=== PATIENT | female | born 1985 | race Caucasian/White ===

== ENCOUNTER 2023-08-23 20:20 | Emergency (ER) | payer OTHER ==
[~2023-08-23] VITALS: Ht 149.9 cm; Wt 40.8 kg
[2023-08-23 20:25] VITALS: BP 170/93; PULSE 112; RESP 16; TEMP 97.6; O2SAT 100
[2023-08-23] MEDS ORDERED: ONDANSETRON 4 MG/2 ML VIAL IVP ONE (20:50)
[2023-08-23] MEDS ORDERED: NACL 0.9% 1,000 ML IV ONE (20:50)
[2023-08-23 21:04] LABS: BASOPHILS % (AUTO) 0.3 % (0.0-2.0); HEMATOCRIT 44.3 % (36-48); LYMPHOCYTES # (AUTO) 0.6 K/uL (2.5-16.5); LYMPHOCYTES % (AUTO) 8.8 % (20.5-51.1); MEAN CORPUSCULAR HEMOGLOBIN 28 pg (27-31); MEAN CORPUSCULAR HGB CONC 34 g/dL (33-37); MEAN CORPUSCULAR VOLUME 82.8 fL (80-94); MONOCYTES # (AUTO) 0.1 K/uL (0.8-1.0); MONOCYTES % (AUTO) 1.9 % (1.7-9.3); NEUTROPHILS # (AUTO) 5.7 K/uL (1.8-7.7); PLATELET COUNT (AUTO) 256 K/uL (140-450); RED BLOOD CELL COUNT(AUTO) 5.36 MIL/uL (4.20-5.40); RED CELL DISTRIBUTION WIDTH 13.2 % (11.6-13.7); WHITE BLOOD COUNT (AUTO) 6.4 K/uL (4.8-10.8)
[2023-08-23 21:27] LABS: ALANINE AMINOTRANSFERASE 28 U/L (12-78); ALBUMIN 4.2 g/dL (3.4-5.0); ALKALINE PHOSPHATASE 92 U/L (50-136); ANION GAP 17.5 (8-16); ASPARTATE AMINOTRANSFERASE 20 U/L (15-37); CALCIUM 9.7 mg/dL (8.5-10.1); CARBON DIOXIDE 23.1 mmol/L (21-32); CHLORIDE 103 mmol/L (98-107); CREATININE 0.6 mg/dL (0.6-1.3); GFR ARICAN-AMERICAN 143 mL/min (>90); GFR NON ARICAN-AMERICAN 118 mL/min (>90); GLUCOSE 154 mg/dL (74-106); LIPASE 21 U/L (16-77); POTASSIUM 3.6 mmol/L (3.5-5.1); SODIUM SERUM 140 mmol/L (136-145); THYROID STIMULATING HORMONE < 0.01 uIU/mL (0.34-3.74); TOTAL PROTEIN, SERUM 7.7 g/dL (6.4-8.2); UREA NITROGEN, BLOOD 12 mg/dL (7-18)
[2023-08-23 21:40] LABS: APPEARANCE,URINE CLEAR (CLEAR); BILIRUBIN,URINE NEGATIVE (NEGATIVE); BLOOD, URINE NEGATIVE (NEGATIVE); COLOR,URINE YELLOW (YELLOW); LEUKOCYTE ESTERASE ,URINE TRACE (NEGATIVE); NITRITE, URINE NEGATIVE (NEGATIVE); PROTEIN,URINE NEGATIVE (NEGATIVE); UGLUCOSE NEGATIVE (NEGATIVE); UROBILINOGEN,URINE 0.2 EU/dL (0.2 - 1)
[2023-08-23] MEDS ORDERED: ONDA-188 SL (21:49)
[2023-08-23 22:02] VITALS: BP 152/93; PULSE 112; RESP 16; TEMP 97.6; O2SAT 100
[2023-08-23 22:04] LABS: BACTERIA,URINE 2+ /HPF (None Seen); MUCUS,URINE 1+ /LPF (None Seen); RBC,URINE 0-5 /HPF (0-5); SQUAMOUS EPITHELIAL CELL,UR 0-3 (FEW) /LPF (0-3 (FEW)); TRICHOMONAS,URINE None Seen /HPF (None Seen); YEAST,URINE None Seen /HPF (None Seen)
== END 2023-08-23 22:02 | disposition home or self-care (01) ==
LOC: MED 20:20
DX: R11.2 Nausea with vomiting, unspecified (principal); E03.9 Hypothyroidism, unspecified; Z79.899 Other long term (current) drug therapy
CPT/HCPCS: 36415; 80053; 81001; 81025; 83690; 84439; 84443; 85025; 87086; 96361; 96374; 99283; J2405; J7030

== ENCOUNTER 2024-03-06 19:16 | Emergency (ER) | payer OTHER ==
[~2024-03-06] VITALS: Ht 147.3 cm; Wt 49.0 kg
[~2024-03-06 19:16] MED LIST: ONDA-188 SL
[2024-03-06 19:22] VITALS: BP 152/105; PULSE 78; RESP 18; TEMP 97.1; O2SAT 100
[2024-03-06 20:05] LABS: BASOPHILS % (AUTO) 0.3 % (0.0-2.0); EOSINOPHILS % (AUTO) 0.4 % (0.0-4.0); HEMATOCRIT 44.5 % (36-48); HEMOGLOBIN 15.2 g/dL (12.0-16.0); LYMPHOCYTES % (AUTO) 23.2 % (20.5-51.1); MEAN CORPUSCULAR HEMOGLOBIN 30 pg (27-31); MEAN CORPUSCULAR HGB CONC 34 g/dL (33-37); MEAN CORPUSCULAR VOLUME 87.1 fL (80-94); MONOCYTES # (AUTO) 0.5 K/uL (0.8-1.0); MONOCYTES % (AUTO) 5.7 % (1.7-9.3); NEUTROPHILS # (AUTO) 6.2 K/uL (1.8-7.7); NEUTROPHILS % (AUTO) 70.4 % (42.2-75.2); PLATELET COUNT (AUTO) 250 K/uL (140-450); RED CELL DISTRIBUTION WIDTH 13.6 % (11.6-13.7); WHITE BLOOD COUNT (AUTO) 8.8 K/uL (4.8-10.8)
[2024-03-06] MEDS: MORPHINE SULFATE 4 MG/ML SYR IVP ONE ×2 (20:20→23:37)
[2024-03-06 20:22] LABS: CALCIUM 9.6 mg/dL (8.5-10.1); CARBON DIOXIDE 25.6 mmol/L (21-32); CREATININE 0.8 mg/dL (0.6-1.3); POTASSIUM 3.6 mmol/L (3.5-5.1)
[2024-03-06 20:26] LABS: INR 0.95 (0.8-1.2); PARTIAL THROMBOPLASTIN TIME 24.6 secs (22-35.6)
[2024-03-06 20:39] LABS: ALBUMIN 4.5 g/dL (3.4-5.0); BILIRUBIN,DIRECT 0.3 mg/dL (0.0-0.3); TOTAL BILIRUBIN 2.2 mg/dL (0.0-1.0); TOTAL PROTEIN, SERUM 7.8 g/dL (6.4-8.2)
[2024-03-06] MEDS: ONDANSETRON 4 MG/2 ML VIAL IVP ONE ×2 (20:53→21:58)
[2024-03-06] MEDS: LORazepam 2 MG/ML VIAL IVP ONE ×2 (21:57→22:00)
[2024-03-06] MEDS: NACL 0.9% 1,000 ML IV ONE (22:19)
[2024-03-06] MEDS: METOCLOPRAMIDE 10 MG/2 ML INJ VIAL IVP ONE (23:39)
[2024-03-06] MEDS ORDERED: TAP5 PO (23:52)
[2024-03-07 01:23] VITALS: BP 101/67; PULSE 59; RESP 15; TEMP 98; O2SAT 100
== END 2024-03-07 01:23 | disposition left against medical advice (07) ==
LOC: MED 19:16
DX: E05.00 Thyrotoxicosis with diffuse goiter without thyrotoxic crisis or storm (principal); R11.2 Nausea with vomiting, unspecified; K85.90 Acute pancreatitis without necrosis or infection, unspecified; Z79.899 Other long term (current) drug therapy
CPT/HCPCS: 36415; 71045; 74176; 80048; 80076; 81025; 83690; 83880; 84439; 84443; 84484; 85025; 85610; 85730; 93005; 96361; 96374; 96375; 96376; 99285; J2060; J2270; J2405; J2765; J7030